=== PATIENT | female | born 1975 | race Caucasian/White ===

== ENCOUNTER 2018-02-11 10:01 | Emergency (ER) | payer OTHER ==
[~2018-02-11] VITALS: Ht 162.6 cm; Wt 113.4 kg
[2018-02-11] MEDS ORDERED: KETOROLAC TROMETHAMINE 30 MG/ML VIAL IM STA (10:24)
[2018-02-11] MEDS ORDERED: HYDROCODONE/APAP 5MG-325MG TAB PO ONE (10:30)
[2018-02-11] MEDS ORDERED: CEFTRIAXONE SOD 1 GM VIAL IM ONE (10:30)
[2018-02-11] MEDS ORDERED: METOCLOPRAMIDE HCL 10 MG/2ML VIAL IM ONE (10:30)
[2018-02-11] MEDS ORDERED: DIPHENHYDRAMINE HCL INJ 50 MG/ML VIAL IM ONE (10:30)
== END 2018-02-11 11:03 | disposition home or self-care (01) ==
LOC: FSED 10:01
DX: G43.909 Migraine, unspecified, not intractable, without status migrainosus (principal); J32.0 Chronic maxillary sinusitis; J32.2 Chronic ethmoidal sinusitis
CPT/HCPCS: 99284; J0696; J1200; J1885; J2765

== ENCOUNTER 2018-03-10 10:19 | Emergency (ER) | payer OTHER ==
[~2018-03-10] VITALS: Ht 162.6 cm; Wt 113.4 kg
--- OUTSIDE RECORDS SUMMARY | 2018-03-10 10:22 | XMS REPORT | Continuity of Care Document ---
Author Author [facility] Organization [facility] Address [address] [place] [address] Phone Unavailable Care Team Providers Care Facing Baster Name Role Phone CHERIE YVETTE SINCLAIR PCP Insurance Providers Guarantor EanGilRajesh Address [id number] [place] [address] Email Payer [employer] o Policy Number [id number] Subscriber's Name Rajesh Nicholas Relationship 18 Self / Same As Patient Advance Directives Directive Response Recorded Date/Time Does the patient have an advance directive? No 02/11/18 11:19am Do you have a Directive to Physician? No 02/11/18 11:19am Do you have a Medical Power of Personal Chef? No 02/11/18 11:19am Do you have an out of hospital Do Not Resuscitate Order? No 02/11/18 11:19am Do you have any special needs we should be aware of? No 02/11/18 11:19am Do you have a support person here with you today? Yes 02/11/18 11:19am Did patient receive Notice of Privacy Practices? Yes 02/11/18 11:19am Did patient receive patient rights and responsibilities? Yes 02/11/18 11:19am Problems No problem information available. Medications No medication information available. Social History No social history information available. Hospital Discharge Instructions No hospital discharge instruction information available. Plan of Care Discharge Date 02/11/18 11:03am Disposition HOME, SELF-CARE Condition at Discharge Stable Instructions/Education Provided Headache Headache - Migraine (Adult) Sinusitis - Chronic Forms Provided Work/School Excuse Prescriptions See Medication Section Referrals YVETTE CRESPO DO Address: [address] [place], [place] [id number] LUCERO RINCON M.D. Order Date: Call for an appointment Address: [id number] [place] [address] [address] [place] [address] CELL# Additional Instructions/Education FOLLOW UP WITH NEUROLOGY FOR HEADACHE Functional Status No functional status information available. Allergies, Adverse Reactions, Alerts Allergen Type Severity Reaction Status Last Updated Prochlorperazine Allergy Unknown Active 02/11/18 Sulfamethoxazole Allergy Unknown Active 02/11/18 Trimethoprim Allergy Unknown Active 02/11/18 Promethazine Allergy Unknown Active 02/11/18 Levofloxacin Allergy Unknown Active 02/11/18 MARTIN Allergy Unknown Active 02/11/18 PCN Allergy Unknown Active 02/11/18 Immunizations No immunization information available. Vital Signs Acute Vital Signs Vital Response Date/Time Height 5 ft 4 in 02/11/2018 10:56am Weight 250 lb 02/11/2018 10:56am Body Mass Index 42.9 kg/m^2 02/11/2018 10:56am Results No relevant diagnostic test, laboratory data and/or discharge summary information available. Procedures No procedure information available. Encounters Encounter Location Arrival/Admit Date Discharge/Depart Date Attending Provider Departed Emergency Room [facility] 02/11/18 10:01am 02/11 11:03am HARI GOMEZ MD
[2018-03-10] MEDS ORDERED: IBUPROFEN 600 MG TAB PO STA (12:26)
== END 2018-03-10 12:37 | disposition home or self-care (01) ==
LOC: FSED 10:19
DX: S86.819A Strain of other muscle(s) and tendon(s) at lower leg level, unspecified leg, initial encounter (principal); S80.212A Abrasion, left knee, initial encounter; S80.02XA Contusion of left knee, initial encounter; J06.9 Acute upper respiratory infection, unspecified; I10 Essential (primary) hypertension
CPT/HCPCS: 99284